=== PATIENT | female | born 1950 | race Caucasian/White ===

== ENCOUNTER 2019-05-10 08:09 | Day surgery (SDC) | payer MEDICARE ==
[~2019-05-10] VITALS: Ht 165.1 cm; Wt 67.3 kg
[2019-05-10 08:31] VITALS: BP 147/60; PULSE 70; TEMP 97.6
[2019-05-10] MEDS ORDERED: PRINIVIL40 MG PO (08:57)
[2019-05-10 10:40] VITALS: BP 93/50; PULSE 58; TEMP 97.8
--- NOTE | 2019-05-10 10:40 | NUR ---
Patient brought back to [facility] via cart. Ambulated to chair with assist. Son at bedside to translate for pt. Placed on monitors, vital signs stable. Report recieved from Fidelina RN. Pt requests sprite and toast with butter. Will continue to monitor.
[2019-05-10 10:55] VITALS: BP 133/64; PULSE 56
--- NOTE | 2019-05-10 10:55 | NUR ---
Patient tolerating food and drink without difficulty. Patient states she feels "good". Vital signs stable. Will contiue to monitor.
[2019-05-10 11:10] VITALS: BP 122/57; PULSE 56
--- NOTE | 2019-05-10 11:10 | NUR ---
Vital signs stable. pt states she feels ready to go home. Vital signs stable. Will continue to monitor.
--- NOTE | 2019-05-10 11:30 | NUR ---
Discharge instructions reviewed with patient and son. Verbalized understanding. Pt brought down to lobby via wheel chair. To be driven home by son.
== END 2019-05-10 11:30 | disposition home or self-care (01) ==
LOC: SDCO 08:09
DX: K31.7 Polyp of stomach and duodenum (principal); I25.2 Old myocardial infarction; K63.4 Enteroptosis; K44.9 Diaphragmatic hernia without obstruction or gangrene; K63.9 Disease of intestine, unspecified; K57.30 Diverticulosis of large intestine without perforation or abscess without bleeding; K21.9 Gastro-esophageal reflux disease without esophagitis; D64.9 Anemia, unspecified; K64.1 Second degree hemorrhoids; Z86.19 Personal history of other infectious and parasitic diseases; Z86.73 Personal history of transient ischemic attack (TIA), and cerebral infarction without residual deficits; Z82.49 Family history of ischemic heart disease and other diseases of the circulatory system; Z87.448 Personal history of other diseases of urinary system; Z90.49 Acquired absence of other specified parts of digestive tract
CPT/HCPCS: J2704; J7030